=== PATIENT | male | born 1990 | race Caucasian/White ===

== ENCOUNTER 2018-04-19 08:51 | Emergency (ER) | payer OTHER ==
[~2018-04-19] VITALS: Ht 182.9 cm; Wt 77.1 kg
--- NOTE | ~2018-04-19 | EKG ---
[facility] [place] [address] ELECTROCARDIOGRAM REPORT Name: PILO GARCIA Room #: [facility] JAKE Grey#: [id number] Admission: 04/19/18 Attend Phys: Discharge: 04/19/18 Date of : 86 Report #: [id number] THIS REPORT FOR: //name// [facility] ED Test Date: 2018-04-19 Test Time: 09:08:13 Pat Name: PILO GARCIA Department: Room: Gender: [employer] Supervisor: cweisdarin : 1990 Requested By: Omer Angel Order Number: [id number] MD: Arturo Roque Measurements Intervals [place] Rate: 59 P: 20 CA: 253 QRS: 73 QRSD: 81 T: 42 QT: 384 QTc: 381 Interpretive Statements Sinus bradycardia Prolonged CA interval Poor septal R-wave progression No previous ECG available for comparison Electronically Signed On 04-19-2018 16:13:31 CDT by Arturo Roque [email or web address] <ELECTRONICALLY SIGNED> By: Arturo Roque MD, [facility] 04/19/18 1613 [id number] Arturo Roque MD, FACC /EPI
[2018-04-19 09:24] LABS: ABSOLUTE NEUTROPHILS 4.4 thou/uL (1.4-8.2); BASOPHILS 0.4 % (0.0-2.0); EOSINOPHILS 3.3 % (0.0-3.0); HEMATOCRIT 44.7 % (42.0-52.0); HEMOGLOBIN 15.5 gm/dL (14.0-18.0); LYMPHOCYTES 13.8 % (24.0-44.0); MCH 28.9 pg (26.0-34.0); MCHC 34.8 g/dL (28.0-37.0); MONOCYTES 8.7 % (1.0-8.0); PLATELET COUNT 250 thou/uL (150-400); POLYS 73.8 % (36.0-66.0); RBC 5.38 mil/uL (4.50-6.00); RDW 13.8 % (10.5-14.5)
[2018-04-19 09:27] LABS: URINE BILIRUBIN NEGATIVE (Negative); URINE BLOOD NEGATIVE (Negative); URINE CLARITY CLEAR; URINE COLOR YELLOW; URINE GLUCOSE-RANDOM* NEGATIVE (Negative); URINE KETONES NEGATIVE (Negative); URINE LEUKOCYTES-REFLEX NEGATIVE (Negative); URINE NITRITE-REFLEX NEGATIVE (Negative); URINE PROTEIN (DIPSTICK) NEGATIVE (Negative); URINE UROBILINOGEN 0.2 E.U./dl (0.2-1.0)
[2018-04-19 09:29] LABS: ANION GAP 6 mmol/L (7-16); BUN 18 mg/dL (7-18); CALCIUM 9.3 mg/dL (8.5-10.1); CHLORIDE 102 mmol/L (98-107); CO2 28 mmol/L (21-32); GLUCOSE 94 mg/dL (74-106); POTASSIUM 4.1 mmol/L (3.5-5.1); SODIUM 136 mmol/L (136-145)
[2018-04-19 09:38] LABS: ALBUMIN 4.4 g/dL (3.4-5.0); SGOT 24 U/L (15-37); SGPT 27 U/L (30-65); TOTAL BILIRUBIN 0.5 mg/dL (<0.1-1.0); TOTAL PROTEIN 7.7 g/dL (6.4-8.2); TROPONIN-I <0.06 ng/mL (<0.06)
[2018-04-19 09:40] VITALS: BP 125/67
== END 2018-04-19 10:33 | disposition home or self-care (01) ==
LOC: ER 08:51
PROVIDERS: Physician Assistant
DX: S09.90XA Unspecified injury of head, initial encounter (principal); R55 Syncope and collapse; W22.8XXA Striking against or struck by other objects, initial encounter; Y93.89 Activity, other specified; Y92.89 Other specified places as the place of occurrence of the external cause; Y99.8 Other external cause status